=== PATIENT | female | born 1950 | race Caucasian/White ===

== ENCOUNTER 2024-02-02 08:53 | Outpatient (CLI) | payer MEDICARE ==
[2024-02-02] MEDS ORDERED: iohexol 300mg/ml 100ml inj. ONE (10:05)
[2024-02-02 10:20] LABS: ALBUMIN 3.7 G/DL (3.4-5.0); ANION GAP 5 (8-16); CALCIUM 9.3 MG/DL (8.5-10.1); CHLORIDE 104 MMOL/L (99-107); CREATININE 0.77 MG/DL (0.40-0.90); GLUCOSE 104 MG/DL (70-104); POTASSIUM 4.2 MMOL/L (3.5-5.1); SODIUM 138 MMOL/L (135-145); TOTAL CARBON DIOXIDE 29.2 MMOL/L (24-32); eGFR 74 ML/MIN
[2024-02-02 10:22] LABS: BLOOD UREA NITROGEN 11 MG/DL (7-18); BUN/CREATININE RATIO 14.3 (10.0-20.0)
== END 2024-02-02 23:59 | disposition home or self-care (01) ==
LOC: RAD 08:53
PROVIDERS: ATTEND Specialist
DX: D25.9 Leiomyoma of uterus, unspecified (principal); N75.0 Cyst of Bartholin's gland; M79.81 Nontraumatic hematoma of soft tissue
CPT/HCPCS: 36415; 72194; 80048; Q9967